=== PATIENT | female | born 1990 | race Two or more races ===

== ENCOUNTER 2017-06-10 17:10 | Emergency (ER) | payer OTHER ==
[2017-06-10 17:27] VITALS: BP 126/80
[2017-06-10] MEDS ORDERED: Ondansetron INJ* 2 MG/ML VIAL IV ONE (17:57)
[2017-06-10] MEDS ORDERED: Morphine INJ* 4 MG/ML 1 ML CARPUJECT IV ONE (17:57)
[2017-06-10 18:29] LABS: ABS Basophils 0 10^3/ul (0-0.2); ABS Eosinophils 0 10^3/ul (0-0.6); ABS Lymphocytes 1.8 10^3/ul (1.0-4.8); ABS Monocytes 0.6 10^3/ul (0-0.8); ABS Neutrophils 9.3 10^3/ul (1.5-7.7); ABS Nucleated RBC 0 10^3/ul; Eosinophil % 0.3 % (0-6); Hematocrit 43 % (35-47); Hemoglobin 14.1 g/dl (12.0-16.0); Lymphocyte % 15.3 % (25-47); Mean Corpuscular HGB Conc 33 g/dl (31-36); Mean Corpuscular Hemoglobin 29 pg (27-31); Mean Corpuscular Volume 88 fL (80-97); Mean Platelet Volume 9 um3 (7.4-10.4); Nucleated Red Blood Cells % 0; Platelet Count 213 10^3/ul (150-450); Red Blood Count 4.83 10^6/ul (4.0-5.4); Red Cell Distribution Width 13 % (10.5-15); White Blood Count 11.7 10^3/ul (3.5-10.8)
[2017-06-10] MEDS ORDERED: HYDROmorphone INJ* 2 MG/ML CARPUJECT SYRINGE IV SLOW PU ONE ×2 (18:29→19:28)
--- NOTE | 2017-06-10 18:35 | RAD ---
HISTORY: Right ankle pain, right leg deformity, trauma COMPARISONS: None VIEWS: 6, Frontal, lateral, and oblique views of the right ankle with frontal and lateral views of the right foreleg FINDINGS: BONE DENSITY: There is an oblique, comminuted, and angulated fracture of the distal tibial metaphysis with articular extension. There is transverse fracture through the distal fibula. The tibial fibular interval is normal. There is no oblique displaced fracture of the proximal fibula. BONES: There is no displaced fracture. JOINTS: There is no arthropathy. ALIGNMENT: There is no dislocation. SOFT TISSUES: Unremarkable. OTHER FINDINGS: None. IMPRESSION: 1. OBLIQUE COMMINUTED ANGULATED FRACTURE OF THE DISTAL TIBIA WITH ARTICULAR EXTENSION. 2. NONDISPLACED FRACTURE OF THE DISTAL FIBULA. 3. DISPLACED FRACTURE OF THE PROXIMAL FIBULA.
[2017-06-10 18:43] LABS: EGFR Non-African American 82.5 (>60)
--- NOTE | 2017-06-10 19:03 | ED ---
Lower Extremity - HPI Summary HPI Summary: 26F presents with right leg pain and deformity. She states she collided with her boyfriend and that her leg twisted behind her while ice skating. She denies any previous injury to the area. She admits to some tingling but denies any numbness. She denies any knee pain. She states the pain is mostly in her right quarles. She is in 10/10 pain. She has not taken anything for her pain. She denies any head injury. She denies any chest pain abdominal pain or any other extremity pain. She is a student. - History of Current Complaint Chief Complaint: EDExtremityLower Stated Complaint: POSSIBLE BROKEN RT ANKLE Time Seen by Provider: 06/10/17 17:51 Hx Last Menstrual Period: 20 days ago Pain Intensity: 7 - Allergies/Home Medications Allergies/Adverse Reactions: Allergies Allergy/AdvReac Type Severity Reaction Status Date / Time Bee Venom Allergy Intermediate Nausea And Verified 03/22/16 06:47 Vomiting No Known Drug Allergy Allergy Unknown Verified 03/22/16 06:47 Reaction Details PMH/Surg Hx/FS Hx/Imm Hx Endocrine/Hematology History: Denies: Hx Anticoagulant Therapy Respiratory History: Reports: Hx Asthma - states as child until 9 years old no meds for Sensory History: Reports: Hx Contacts or Glasses - pt wears contacts and has glasses Denies: Hx Hearing Aid Opthamlomology History: Reports: Hx Contacts or Glasses - pt wears contacts and has glasses - Surgical History Surgery Procedure, Year, and Place: wisdom teeth removed 2 years ago Hx Anesthesia Reactions: No Infectious Disease History: No Infectious Disease History: Denies: Hx Clostridium Difficile, Hx Hepatitis, Hx Human Immunodeficiency Virus (HIV), Hx of Known/Suspected MRSA, Hx Shingles, Hx Tuberculosis, Hx Known/ Suspected VRE, Hx Known/Suspected VRSA, History Other Infectious Disease, Traveled Outside the [place] in Last 30 Days - Family History Known Family History: Positive: None - Social History Alcohol Use: None Substance Use Type: Reports: None Smoking Status (MU): Never Smoked Tobacco Review of Systems Negative: Fever Negative: Chest Pain Negative: Shortness Of Breath Positive: Myalgia - right lower leg pain, Edema All Other Systems Reviewed And Are Negative: Yes Physical Exam Triage Information Reviewed: Yes Vital Signs On Initial Exam: Initial Vitals Temp Pulse Resp BP Pulse Ox 97.9 F 88 20 126/80 98 06/10/17 17:26 06/10/17 17:26 06/10/17 17:26 06/10/17 17:26 06/10/17 17:26 Vital Signs Reviewed: Yes Appearance: Positive: Pain Distress Skin: Positive: Warm, Dry Head/Face: Positive: Normal Head/Face Inspection Eyes: Positive: Normal, Conjunctiva Clear Respiratory/Lung Sounds: Positive: Clear to Auscultation, Breath Sounds Present Cardiovascular: Positive: Normal, RRR Musculoskeletal: Positive: Limited @ - right lower leg, Edema Right - lower leg , Other - deformity to right lower leg, good pulses, capillary refill<2 secs, sensation grossly intact Neurological: Positive: Normal Psychiatric: Positive: Normal Diagnostics - Vital Signs Vital Signs Temp Pulse Resp BP Pulse Ox 06/10/17 18:34 20 06/10/17 18:07 18 06/10/17 17:26 97.9 F 88 20 126/80 98 - Laboratory Lab Results: Lab Results 06/10/17 06/10/17 Range/Units 18:09 18:09 WBC 11.7 H (3.5-10.8) 10^3/ul RBC 4.83 (4.0-5.4) 10^6/ul Hgb 14.1 (12.0-16.0) g/dl Hct 43 (35-47) % MCV 88 (80-97) fL MCH 29 (27-31) pg MCHC 33 (31-36) g/dl RDW 13 (10.5-15) % Plt Count 213 (150-450) 10^3/ul MPV 9 (7.4-10.4) um3 Neut % (Auto) 79.4 (38-83) % Lymph % (Auto) 15.3 L (25-47) % Millard % (Auto) 4.9 (1-9) % Eos % (Auto) 0.3 (0-6) % Baso % (Auto) 0.1 (0-2) % Absolute Neuts (auto) 9.3 H (1.5-7.7) 10^3/ul Absolute Lymphs (auto) 1.8 (1.0-4.8) 10^3/ul Absolute Monos (auto) 0.6 (0-0.8) 10^3/ul Absolute Eos (auto) 0 (0-0.6) 10^3/ul Absolute Basos (auto) 0 (0-0.2) 10^3/ul Absolute Nucleated RBC 0 10^3/ul Nucleated RBC % 0 Sodium 136 (133-145) mmol/L Potassium 3.2 L (3.5-5.0) mmol/L Chloride 101 (101-111) mmol/L Carbon Dioxide 23 (22-32) mmol/L Anion Gap 12 H (2-11) mmol/L BUN 13 (6-24) mg/dL Creatinine 0.83 (0.51-0.95) mg/dL Est GFR ( Amer) 106.1 (>60) Est GFR (Non-Af Amer) 82.5 (>60) BUN/Creatinine Ratio 15.7 (8-20) Glucose 112 H (70-100) mg/dL Calcium 9.9 (8.6-10.3) mg/dL Total Bilirubin 0.40 (0.2-1.0) mg/dL AST 16 (13-39) U/L ALT 8 (7-52) U/L Alkaline Phosphatase 54 (34-104) U/L Total Protein 7.9 (6.4-8.9) g/dL Albumin 4.8 (3.2-5.2) g/dL Globulin 3.1 (2-4) g/dL Albumin/Globulin Ratio 1.5 (1-3) Result Diagrams: 06/10/17 18:09 06/10/17 18:09 Lab Statement: Any lab studies that have been ordered have been reviewed, and results considered in the medical decision making process. - Radiology leg Xray Interpretation: Positive (See Comments) - IMPRESSION: 1. OBLIQUE COMMINUTED ANGULATED FRACTURE OF THE DISTAL TIBIA WITH ARTICULAR EXTENSION. 2. NONDISPLACED FRACTURE OF THE DISTAL FIBULA. 3. DISPLACED FRACTURE OF THE PROXIMAL FIBULA. Radiology Interpretation Completed By: Radiologist Lower Extremity Course/Dx - Course Course Of Treatment: 26F presents with right leg pain and deformity. She states she collided with her boyfriend and that her leg twisted behind her while ice skating. She denies any previous injury to the area. She admits to some tingling but denies any numbness. She denies any knee pain. She states the pain is mostly in her right quarles. She is in 10/10 pain. She has not taken anything for her pain. She denies any head injury. She denies any chest pain abdominal pain or any other extremity pain. On exam neurovascularly intact. Has deformities her right ankle. X-ray shows spinal fracture of right lower leg. Dr. Walker came in and reduced fracture and placed splint. Patient will follow-up with Dr. Walker. Will give pain medication and have follow rice. Patient understands and agrees with plan. - Diagnoses Differential Diagnosis/HQI/PQRI: Positive: Fracture (Closed), Sprain, Strain Provider Diagnoses: Fracture of right tibia and fibula Discharge - Discharge Plan Condition: Good Disposition: HOME Prescriptions: oxyCODONE/Acetamin 5/325 MG* [Percocet 5/325 TAB*] 1 tab PO Q6H PRN #20 tab MDD 4 PRN Reason: Pain Patient Education Materials: Leg Fracture (ED) Referrals: [facility] - Sandor ANTHONY [Primary Care Provider] - Casey Walker MD [Medical Doctor] - Additional Instructions: Use crutches and stay nonweight bearing Keep splint on area and keep dry Call ortho office o set up appointment for follow up on Monday Use ibuprofen for pain every 6 hours and use narcotic for breakthrough pain Ice, elevate Return to ED if develop numbness or tingling or any new or worsening symptoms
[2017-06-10] MEDS ORDERED: Ketorolac INJ* 30 MG/ML 1 ML VIAL IV PUSH ONE (19:13)
[2017-06-10] MEDS ORDERED: HYDROmorphone INJ* 1 MG/ML CARPUJECT SYRINGE ONE (19:30)
--- NOTE | 2017-06-10 20:39 | RAD ---
HISTORY: Post reduction COMPARISONS: June 10, 2017 at 6:05 PM VIEWS: 3, Frontal and lateral views of the right foreleg FINDINGS: BONE DENSITY: Normal. BONES: Again noted is comminuted fracture of the distal tibia with articular extension. There has been interval reduction of the displacement of the proximal fibular fracture. Again noted is a nondisplaced distal fibular fracture. JOINTS: There is no arthropathy. ALIGNMENT: There is no dislocation. SOFT TISSUES: Unremarkable. OTHER FINDINGS: None. IMPRESSION: AGAIN NOTED ARE FRACTURES OF THE PROXIMAL AND DISTAL FIBULA AND OF THE DISTAL TIBIA. THERE IS BEEN INTERVAL REDUCTION OF THE PROXIMAL FIBULAR FRACTURE DISPLACEMENT
== END 2017-06-10 21:23 | disposition home or self-care (01) ==
LOC: ED 17:10
DX: S82.301A Unspecified fracture of lower end of right tibia, initial encounter for closed fracture (principal); S82.831A Other fracture of upper and lower end of right fibula, initial encounter for closed fracture; V00.211A Fall from ice-skates, initial encounter; Y93.21 Activity, ice skating; Y92.9 Unspecified place or not applicable
CPT/HCPCS: 27824; 36415; 80053; 85025; 96374; 96375; 96376; 99283; J1170; J1885; J2270; J2405

== ENCOUNTER 2018-09-07 16:50 | Emergency (ER) | payer OTHER ==
--- NOTE | 2018-09-07 17:43 | ED ---
Shortness of Breath - HPI Summary HPI Summary: 27-year-old female presents from outpatient office for an elevated d-dimer. Should she's been having shortness of breath when she walks upstairs for the past week. States it feels like her asthma had when she was younger. They did a d-dimer and found that it is elevated. She also notes some swelling to right leg. She has history of previous fractured right leg so swelling is often normal for her. She is on control. No family history of blood clots. No recent travel. She denies any chest pain. No current shortness breath. She states she's been feeling very fatigued for the past week. Denies any palpitations. No medical conditions. no cough - History of Current Complaint Chief Complaint: EDGeneral Time Seen by Provider: 09/07/18 17:36 - Allergy/Home Medications Allergies/Adverse Reactions: Allergies Allergy/AdvReac Type Severity Reaction Status Date / Time bee venom protein (honey bee) Allergy Nausea And Verified 09/07/18 17:21 Vomiting PMH/Surg Hx/FS Hx/Imm Hx Endocrine/Hematology History: Denies: Hx Anticoagulant Therapy Respiratory History: Reports: Hx Asthma - states as child until 9 years old no meds for Sensory History: Reports: Hx Contacts or Glasses - pt wears contacts and has glasses Denies: Hx Hearing Aid Opthamlomology History: Reports: Hx Contacts or Glasses - pt wears contacts and has glasses - Surgical History Surgery Procedure, Year, and Place: wisdom teeth removed 2 years ago Hx Anesthesia Reactions: No Infectious Disease History: No Infectious Disease History: Denies: Hx Clostridium Difficile, Hx Hepatitis, Hx Human Immunodeficiency Virus (HIV), Hx of Known/Suspected MRSA, Hx Shingles, Hx Tuberculosis, Hx Known/ Suspected VRE, Hx Known/Suspected VRSA, History Other Infectious Disease, Traveled Outside the [place] in Last 30 Days - Family History Known Family History: Positive: None Negative: Blood Disorder - Social History Alcohol Use: Occasionally Substance Use Type: Reports: None Smoking Status (MU): Never Smoked Tobacco Review of Systems Negative: Fever Negative: Chest Pain Positive: Shortness Of Breath. Negative: Cough Negative: Abdominal Pain Positive: Weakness All Other Systems Reviewed And Are Negative: Yes Physical Exam Triage Information Reviewed: Yes Vital Signs On Initial Exam: Initial Vitals Temp Pulse Resp BP Pulse Ox 99.2 F 67 16 137/83 98 04/26/19 17:00 09/07/18 17:00 09/07/18 17:00 09/07/18 17:00 09/07/18 17:00 Vital Signs Reviewed: Yes Appearance: Positive: Well-Appearing Skin: Positive: Warm, Dry Head/Face: Positive: Normal Head/Face Inspection Eyes: Positive: Normal, EOMI, DOROTEO, Conjunctiva Clear ENT: Positive: Normal ENT inspection, Pharynx normal, TMs normal Respiratory/Lung Sounds: Positive: Clear to Auscultation, Breath Sounds Present Cardiovascular: Positive: Normal, RRR Abdomen Description: Positive: Nontender, Soft Bowel Sounds: Positive: Present Musculoskeletal: Positive: Strength/ROM Intact - legs, Edema Right - leg, Other - good pulses Neurological: Positive: Normal Psychiatric: Positive: Normal Diagnostics - Vital Signs Vital Signs Temp Pulse Resp BP Pulse Ox 09/07/18 17:00 99.2 F 67 16 137/83 98 - Laboratory Result Diagrams: 09/07/18 17:49 09/07/18 17:49 Lab Statement: Any lab studies that have been ordered have been reviewed, and results considered in the medical decision making process. - CT chest CT Interpretation Completed By: Radiologist Summary of CT Findings: IMPRESSION: No acute findings. - Ultrasound No standard instances Ultrasound Interpretation Completed By: Radiologist Summary of Ultrasound Findings: IMPRESSION: No acute findings. No evidence of deep vein thrombosis. - EKG No standard instances Cardiac Rate: NL EKG Rhythm: Sinus Rhythm Summary of EKG Findings: sinus rhythm Course/Dx - Course Course Of Treatment: 27-year-old female presents from outpatient office for an elevated d-dimer. Should she's been having shortness of breath when she walks upstairs for the past week. States it feels like her asthma had when she was younger. They did a d-dimer and found that it is elevated. She also notes some swelling to right leg. She has history of previous fractured right leg so swelling is often normal for her. She is on control. No family history of blood clots. No recent travel. She denies any chest pain. No current shortness breath. She states she's been feeling very fatigued for the past week. Denies any palpitations. No medical conditions. On exam lungs clear auscultation. Heart regular rate and rhythm. EKG shows a sinus rhythm. Has some edema noted to the right leg. Ultrasound of the right leg is normal. CTA shows no PE. Was discharged have follow up primary as may need testing for asthma etc. Patient understands agrees plan - Diagnoses Differential Diagnosis/HQI/PQRI: Positive: Asthma, Bronchitis, Pulmonary Embolism, Other - dvt Provider Diagnoses: Shortness of breath Discharge - Sign-Out/Discharge Documenting (check all that apply): Patient Departure Patient Received Moderate/Deep Sedation with Procedure: No - Discharge Plan Condition: Good Disposition: HOME Referrals: [facility] - Chriss ANTHONY [Primary Care Provider] - Additional Instructions: follow up with chriss Return to ED if develop any new or worsening symptoms - Billing Disposition and Condition Condition: GOOD Disposition: Home
[2018-09-07 18:00] LABS: ABS Basophils 0 10^3/ul (0-0.2); ABS Eosinophils 0.2 10^3/ul (0-0.6); ABS Lymphocytes 2.5 10^3/ul (1.0-4.8); ABS Monocytes 0.6 10^3/ul (0-0.8); ABS Neutrophils 3.8 10^3/ul (1.5-7.7); ABS Nucleated RBC 0 10^3/ul; Eosinophil % 2.5 %; Hematocrit 40 % (33-41); Hemoglobin 13.2 g/dL (12.0-16.0); Mean Corpuscular HGB Conc 33 g/dL (31-36); Mean Corpuscular Hemoglobin 29 pg (27-31); Mean Corpuscular Volume 87 fL (80-97); Mean Platelet Volume 9.2 fL (7.4-10.4); Nucleated Red Blood Cells % 0.1; Platelet Count 217 10^3/uL (150-450); Red Blood Count 4.61 10^6 /uL (3.70-4.87); Red Cell Distribution Width 14 % (10.5-15); White Blood Count 7.1 10^3/uL (3.5-10.8)
[2018-09-07 18:18] LABS: ALT 6 U/L (7-52); AST 11 U/L (13-39); Albumin 4.4 g/dL (3.2-5.2); Albumin/Globulin Ratio 1.6 (1-3); Alkaline Phosphatase 58 U/L (34-104); Anion Gap 6 mmol/L (2-11); BUN/Creatinine Ratio 18.6 (8-20); Blood Urea Nitrogen 16 mg/dL (6-24); C Reactive Protein 1.29 mg/L (<8.01); CO2 Carbon Dioxide 26 mmol/L (22-32); Calcium 9.3 mg/dL (8.6-10.3); Chloride 104 mmol/L (101-111); EGFR African American 95.1 (>60); EGFR Non-African American 78.6 (>60); Globulin 2.7 g/dL (2-4); Glucose 93 mg/dL (70-100); Magnesium 2.2 mg/dL (1.9-2.7); Sodium 136 mmol/L (135-145); Total Protein 7.1 g/dL (6.4-8.9)
[2018-09-07 18:23] LABS: HCG Pregnancy < 0.60 mIU/mL
[2018-09-07] MEDS ORDERED: Iohexol 350* (CONTRAST) 500 ML MDV IV ONE (18:35)
[2018-09-07 18:53] LABS: TSH (Thyroid Stimulating Horm) 3.44 mcIU/mL (0.34-5.60)
[2018-09-07 20:58] VITALS: BP 115/57
== END 2018-09-07 20:56 | disposition home or self-care (01) ==
LOC: ED 16:50
DX: R06.02 Shortness of breath (principal)
CPT/HCPCS: 36415; 71275; 80053; 83735; 84443; 84702; 85025; 86140; 93005; 99282; Q9967